=== PATIENT | female | born 1975 | race Hispanic/Latino ===

== ENCOUNTER 2019-10-18 05:56 | Emergency (ER) | payer SELFPAY ==
[~2019-10-18] VITALS: Ht 157.5 cm; Wt 86.2 kg
--- NOTE | 2019-10-18 06:20 | NUR ---
straight cath urine output mesno=[id number] - notified
[2019-10-18 07:00] LABS: BASOPHILS % 0.4 % (0.0-1.0); EOSINOPHILS # (AUTO) 0.2 (0.0-0.4); EOSINOPHILS % 2.1 % (0.0-6.0); HEMATOCRIT 40.1 % (34.2-44.1); HEMOGLOBIN 13.5 g/dL (12.0-16.0); LYMPHOCYTES # (AUTO) 1.5 (1.0-3.2); MEAN CORPUSCULAR HEMOGLOBIN 31.4 pg (28-32); MEAN CORPUSCULAR HGB CONC 33.7 g/dL (31-35); MEAN CORPUSCULAR VOLUME 93.3 fL (81-99); MONOCYTES # (AUTO) 0.5 (0.2-0.8); MONOCYTES % 5.4 % (4.4-11.3); NEUTROPHILS # (AUTO) 6.9 (2.1-6.9); NEUTROPHILS % 75.7 % (38.7-80.0); PLATELET COUNT 310 x10e3/uL (140-360); RED CELL DISTRIBUTION WIDTH 12.8 % (11.7-14.4)
--- NOTE | 2019-10-18 07:00 | NUR ---
post straight cath bladder scan= 114ml- notified
[2019-10-18 07:07] LABS: BILIRUBIN,URINE NEGATIVE (NEGATIVE); CLARITY,URINE CLEAR (CLEAR); COLOR,URINE YELLOW (YELLOW); KETONES,URINE NEGATIVE (NEGATIVE); LEUKOCYTE ESTERASE ,URINE NEGATIVE (NEGATIVE); NITRITE,URINE NEGATIVE (NEGATIVE); PROTEIN,URINE DIPSTICK NEGATIVE (NEGATIVE); URINE UROBILINOGEN 0.2 mg/dL (0.2 - 1)
--- NOTE | 2019-10-18 07:07 | Emergency Department Note ---
History of Present Illnes History of Present Illness Chief Complaint: General Medicine Complaints History of Present Illness This is a 43 year old female Chief Complaint Comment patient around 230 am began having urinary sensation, yet unable to urinate. patient states this issue has happened before and resolved on its own; states has bm was today around 520am, bladder scan showed >910ml urine volume. Historian: Patient Arrival Mode: Car Onset (how long ago): day(s) (2) Location: Bladder Quality: Fullness Radiation: Reports non-radiation Severity: moderate Onset quality: gradual Duration (how long): day(s) (2) Timing of current episode: constant Progression: worsening Chronicity: recurrent Context: Denies recent illness Relieving factors: none Exacerbating factors: none Associated symptoms: Reports denies other symptoms Treatments prior to arrival: none Past Medical/Family History Physician Review I have reviewed the patient's past medical and family history. Any updates have been documented here. Past Medical History Recent Fever: No Clinical Suspicion of Infectio: No New/Unexplained Change in Ment: No Other Medical History: hashymotos disease osteoarthritis Social History Physically hurt or threatened: No Review of Systems Review of Systems Constitutional: Reports no symptoms EENTM: Reports no symptoms Cardiovascular: Reports no symptoms Respiratory: Reports no symptoms Gastrointestinal: Reports no symptoms Genitourinary: Reports as per HPI, Reports other (Inability to urinate) Musculoskeletal: Reports no symptoms Integumentary: Reports no symptoms Neurological: Reports no symptoms Psychological: Reports no symptoms Endocrine: Reports no symptoms Hematological/Lymphatic: Reports no symptoms Physical Exam Related Data Allergies: Coded Allergies: aspirin (Verified Allergy, Severe, anaphylaxis, 10/18/19) ibuprofen (Verified Allergy, Severe, anaphylaxis, 10/18/19) Triage Vital Signs Vital Signs Date Time Temp Pulse Resp B/P (MAP) Pulse Ox O2 Delivery O2 Flow Rate FiO2 10/18/19 06:15 97.9 84 22 127/76 100 Vital signs reviewed: Yes Physical Exam CONSTITUTIONAL Constitutional: Present well-developed, Present well-nourished HENT HENT: Present normocephalic, Present atraumatic, Present oropharynx clear/moist, Present nose normal HENT L/R: Present left ext ear normal, Present right ext ear normal EYES Eyes: Reports PERRL, Reports conjunctivae normal NECK Neck: Present ROM normal PULMONARY Pulmonary: Present effort normal, Present breath sounds normal CARDIOVASCULAR Cardiovascular: Present regular rhythm, Present heart sounds normal, Present capillary refill normal, Present normal rate GASTROINTESTINAL Abdominal: Present soft, Present nontender, Present bowel sounds normal GENITOURINARY Genitourinary: Present exam deferred, Present other (Distended bladder) SKIN Skin: Present warm, Present dry MUSCULOSKELETAL Musculoskeletal: Present ROM normal NEUROLOGICAL Neurological: Present alert, Present oriented x 3, Present no gross motor or sensory deficits PSYCHOLOGICAL Psychological: Present mood/affect normal, Present judgement normal Results Laboratory Laboratory Laboratory Tests Test 10/18/19 06:55 Assessment & Plan Medical Decision Making MDM 43-year-old female presents for urinary retention. She has had this in the past which spontaneously resolved. Symptoms ongoing for the last couple days. Exam shows a distended bladder and she was catheterized with 900 mL out. Labs/urine show moderate bacteria on Cath specimen but no other signs for UTI. 2/2 difficulty urinating will rx keflex and send for UC. She will f/u w/ Urology for this recurrent issue. Patient is now able to void on her own. Patient is appropriate for discharge. Reassessment Reassessment time: 07:06 Reassessment Feels much better after cath Assessment & Plan Final Impression: (1) Urinary retention Depart Disposition: HOME, SELF-CARE Last Vital Signs Date Time Temp Pulse Resp B/P (MAP) Pulse Ox O2 Delivery O2 Flow Rate FiO2 10/18/19 06:15 97.9 84 22 127/76 100 Home Meds Active Scripts Cephalexin Monohydrate (KEFLEX) 500 Mg Capsule, 500 MG PO BID for 7 Days, #14 TAB 0 Refills Prov:EDDIE PRESCOTT MD 10/18/19 EDDIE PRESCOTT MD Oct 18, 2019 07:07
--- NOTE | 2019-10-18 07:08 | NUR ---
walking rounds with trudy luo
--- OUTSIDE RECORDS SUMMARY | 2019-10-18 07:22 | XMS REPORT | Continuity of Care Document ---
Author Author [facility] Organization [facility] Address [address] [place] [address] Phone Unavailable Care Team Providers Care [place] Hold Name Role Phone Rita Fleming Unavailable Payers Payer Name Policy Type Policy Number Effective Date Expiration Date S ource Problems This patient has no known problems. Allergies, Adverse Reactions, Alerts Allergy Name Allergy Type Status Severity Reaction(s) Onset Date Inacti ve Date Treating Clinician Comments Source aspirin DA Active U 2015-04-11 00:00:00 [facility] ibuprofen DA Active U 2015-04-11 00:00:00 [facility] Medications This patient has no known medications. Procedures This patient has no known procedures. Encounters Start Date/Time End Date/Time Encounter Type Admission Type Attendi [facility] Care Department Encounter ID Source 2019-01-24 11:09:00 2019-01-24 11:09:00 Outpatient Flora Fleming [id number] [facility] 2017-08-30 09:59:00 2017-08-30 09:59:00 [facility] [id number]:58:00 2017-08-09 15:58:00 Outpatient Flora FlemingGYRosibel [id number] [facility] 2017-03-03 11:43:00 2017-03-03 11:43:00 Outpatient Flora FlemingOBGYN [id number] [facility] Results This patient has no known results.
[2019-10-18 07:24] LABS: BACTERIA,URINE MODERATE /HPF; EPITHELIAL CELLS,URINE RARE /LPF; RBC,URINE 0-5 /HPF (0-5)
[2019-10-18 07:45] LABS: ALANINE AMINOTRANSFERASE 17 IU/L (0-55); ALBUMIN 4.4 g/dL (3.5-5.0); ALBUMIN/GLOBULIN RATIO 1.5 (0.8-2.0); ALKALINE PHOSPHATASE 74 IU/L (40-150); ANION GAP 14.5 mmol/L (8-16); BLOOD UREA NITROGEN 11 mg/dL (7-26); BUN/CREATININE RATIO 14 (6-25); CALCIUM 9.5 mg/dL (8.4-10.2); CARBON DIOXIDE 23 mmol/L (22-29); CHLORIDE 104 mmol/L (98-107); CREATININE, SERUM 0.78 mg/dL (0.57-1.11); EST GLOMERULAR FILTRATION RATE > 60 ML/MIN (60-); GLUCOSE 116 mg/dL (74-118); POTASSIUM 3.5 mmol/L (3.5-5.1); SODIUM 138 mmol/L (136-145)
[2019-10-18] MEDS ORDERED: KEFLEX500 MG PO (08:03)
[2019-10-18 08:27] VITALS: BP 112/72
== END 2019-10-18 08:49 | disposition home or self-care (01) ==
LOC: ER 06:23
DX: R33.9 Retention of urine, unspecified (principal); E06.3 Autoimmune thyroiditis
CPT/HCPCS: 36415; 80053; 81001; 85025; 87086; 99284

== ENCOUNTER 2019-11-15 03:08 | Emergency (ER) | payer SELFPAY ==
[~2019-11-15] VITALS: Ht 157.5 cm; Wt 86.2 kg
[~2019-11-15 03:08] MED LIST: KEFLEX500 MG PO
--- OUTSIDE RECORDS SUMMARY | 2019-11-15 03:18 | XMS REPORT | Continuity of Care Document ---
Author Author [facility] Organization [facility] Address [address] [place] [address] Phone Unavailable Care Team Providers Care Facilities Maintenance Manager Name Role Phone Rita Fleming Unavailable Payers Payer Name Policy Type Policy Number Effective Date Expiration Date S ource Problems This patient has no known problems. Allergies, Adverse Reactions, Alerts Allergy Name Allergy Type Status Severity Reaction(s) Onset Date Inacti ve Date Treating Clinician Comments Source aspirin DA Active U 2015-04-11 00:00:00 [facility] ibuprofen DA Active U 2015-04-11 00:00:00 [facility] Medications This patient has no known medications. Procedures This patient has no known procedures. Encounters Start Date/Time End Date/Time Encounter Type Admission Type Attendi [facility] Care Department Encounter ID Source 2019-01-24 11:09:00 2019-01-24 11:09:00 Outpatient Flora Fleming [id number] [facility] 2017-08-30 09:59:00 2017-08-30 09:59:00 [facility] [id number] [facility] 15:58:00 2017-08-09 15:58:00 Outpatient Flora FlemingGYRosibel [id number] [facility] 2017-03-03 11:43:00 2017-03-03 11:43:00 Outpatient Flora FlemingOBGYN [id number] [facility] Results This patient has no known results.
--- NOTE | 2019-11-15 04:05 | NUR ---
600 cc clear, yellow urine noted to drainage bag
[2019-11-15 04:09] LABS: CLARITY,URINE CLEAR (CLEAR); COLOR,URINE YELLOW (YELLOW)
[2019-11-15 04:10] LABS: BILIRUBIN,URINE NEGATIVE (NEGATIVE); KETONES,URINE NEGATIVE (NEGATIVE); LEUKOCYTE ESTERASE ,URINE NEGATIVE (NEGATIVE); NITRITE,URINE NEGATIVE (NEGATIVE); PROTEIN,URINE DIPSTICK NEGATIVE (NEGATIVE); URINE UROBILINOGEN 0.2 mg/dL (0.2 - 1)
[2019-11-15 04:15] LABS: BACTERIA,URINE FEW /HPF; EPITHELIAL CELLS,URINE RARE /LPF; RBC,URINE 0-5 /HPF (0-5); WBC,URINE (MAN) 0-5 /HPF (0-5)
--- NOTE | 2019-11-15 04:16 | Emergency Department Note ---
History of Present Illnes History of Present Illness Chief Complaint: Genitourinary History of Present Illness This is a 43 year old female PRESENTS TO ED WITH URINARY RETENTION X3 HRS AND CONSTIPATION; HOWEVER, PT REPORTS CHRONIC CONSTIPATION; PT HAS HAD URINARY RETENTION IN THE PAST INCLUDING HER LAST VISIT TO THIS ER, HAS NOT FOLLOWED UP WITH UROLOGY YET.. Historian: Patient Arrival Mode: [employer] Assistant Required: No Onset (how long ago): hour(s) (3) Location: SUPRA PUBIC Quality: DISCOMFORT Radiation: Reports non-radiation Severity: moderate Onset quality: gradual Duration (how long): hour(s) (3) Timing of current episode: constant Progression: worsening Chronicity: recurrent Context: Denies recent illness, Denies recent surgery, Denies trauma/injury Relieving factors: none Exacerbating factors: none Associated symptoms: Reports other (CONSTIPATION) Past Medical/Family History Physician Review I have reviewed the patient's past medical and family history. Any updates have been documented here. Past Medical History Recent Fever: No Clinical Suspicion of Infectio: No New/Unexplained Change in Ment: No Other Medical History: hashymotos disease osteoarthritis Social History Smoking Cessation: Never Smoker Alcohol Use: None Any Illegal Drug Use: No Family History Family history of heart diseas: No Review of Systems Review of Systems Constitutional: Reports no symptoms EENTM: Reports no symptoms Cardiovascular: Reports no symptoms Respiratory: Reports no symptoms Gastrointestinal: Reports as per HPI Genitourinary: Reports as per HPI Musculoskeletal: Reports no symptoms Integumentary: Reports no symptoms Neurological: Reports no symptoms Psychological: Reports no symptoms Endocrine: Reports no symptoms Hematological/Lymphatic: Reports no symptoms Physical Exam Related Data Allergies: Coded Allergies: aspirin (Verified Allergy, Severe, anaphylaxis, 10/18/19) ibuprofen (Verified Allergy, Severe, anaphylaxis, 10/18/19) Triage Vital Signs Vital Signs Date Time Temp Pulse Resp B/P (MAP) Pulse Ox O2 Delivery O2 Flow Rate FiO2 11/15/19 04:02 98.7 84 17 154/92 98 Room Air Vital signs reviewed: Yes Physical Exam CONSTITUTIONAL Constitutional: Present well-developed, Present well-nourished; Absent distressed HENT HENT: Present normocephalic, Present atraumatic, Present oropharynx clear/moist, Present nose normal HENT L/R: Present left ext ear normal, Present right ext ear normal EYES Eyes: Reports PERRL, Reports conjunctivae normal NECK Neck: Present ROM normal PULMONARY Pulmonary: Present effort normal, Present breath sounds normal CARDIOVASCULAR Cardiovascular: Present regular rhythm, Present heart sounds normal, Present capillary refill normal, Present normal rate GASTROINTESTINAL Abdominal: Present soft, Present bowel sounds normal, Present tender (SUPARPUBIC), Present other (BLADDER DISTENSION PRESENT ON EXAM) GENITOURINARY Genitourinary: Present exam deferred SKIN Skin: Present warm, Present dry MUSCULOSKELETAL Musculoskeletal: Present ROM normal NEUROLOGICAL Neurological: Present alert, Present oriented x 3, Present no gross motor or sensory deficits PSYCHOLOGICAL Psychological: Present mood/affect normal, Present judgement normal Results Laboratory Laboratory Laboratory Tests Test 11/15/19 03:50 Urine Color Yellow (YELLOW) Urine Clarity Clear (CLEAR) Urine pH 5.5 (5 - 7) Urine Specific [place] 1.015 (1.010-1.025) Urine Protein Negative (NEGATIVE) Urine Glucose (UA) Negative (NEGATIVE) Urine Ketones Negative (NEGATIVE) Urine Blood Trace (NEGATIVE) Urine Nitrite Negative (NEGATIVE) Urine Bilirubin Negative (NEGATIVE) Urine Urobilinogen 0.2 mg/dL (0.2 - 1) Urine Leukocyte Esterase Negative (NEGATIVE) Urine Test Negative (NEGATIVE) Lab results reviewed: Yes Imaging Imaging results reviewed: Yes Impressions Procedure: [id number] DX/ABDOMEN-1VIEW (KUB) Exam Date: Exam Time: REPORT STATUS: Signed EXAM: Abdomen Radiograph 1 View(s) INDICATION: ^EVAL FOR CONSTIPATION ^Y COMPARISON: None FINDINGS: Gas and stool are seen throughout the colon to the level of the rectum. Moderate stool burden. No dilated small bowel loops. Multiple pelvic phleboliths. 6 mm calcification projecting over the right iliac bone may represent a bone island or appendicolith. IMPRESSION: Nonobstructive bowel gas pattern. Moderate stool burden. Signed by: Jared Tavarez MD on 11/15/2019 5:18 AM Dictated By: JARED TAVAREZ MD 7 Transcribed By: JUAN PABLO on 11/15/19517 COPY TO: ANDERS TROTTER MD~ Assessment & Plan Medical Decision Making MDM PT WITH URINARY RETENTION AND CONSTIPATION STRAIGHT CATH ORDERED 600 CC URINE OUTPUT IMMEDIATELY KUB,UA ORDERED TO EVAL FOR UTI, FECAL RETENTION, Reassessment Reassessment time: 05:31 Reassessment pt feels better, has urinated twice since straight cath was done and also reports having 2 bowel movements as well Assessment & Plan Final Impression: (1) Constipation (2) Urinary retention Depart Disposition: HOME, SELF-CARE Last Vital Signs Date Time Temp Pulse Resp B/P (MAP) Pulse Ox O2 Delivery O2 Flow Rate FiO2 11/15/19 04:02 98.7 84 17 154/92 98 Room Air Home Meds Active Scripts Cephalexin Monohydrate (KEFLEX) 500 Mg Capsule, 500 MG PO BID for 7 Days, #14 TAB 0 Refills Prov:EDDIE PRESCOTT MD 10/18/19 ANDERS TROTTER MD Nov 15, 2019 04:16
--- NOTE | 2019-11-15 05:22 | Diagnostic Imaging Report ---
EXAM: Abdomen Radiograph 1 View(s) INDICATION: ^EVAL FOR CONSTIPATION ^Y COMPARISON: None FINDINGS: Gas and stool are seen throughout the colon to the level of the rectum. Moderate stool burden. No dilated small bowel loops. Multiple pelvic phleboliths. 6 mm calcification projecting over the right iliac bone may represent a bone island or appendicolith. IMPRESSION: Nonobstructive bowel gas pattern. Moderate stool burden. Signed by: Mina Zapata MD on 11/15/2019 5:18 AM
[2019-11-15 05:30] VITALS: BP 132/79
== END 2019-11-15 05:45 | disposition home or self-care (01) ==
LOC: ER 03:12
DX: K59.00 Constipation, unspecified (principal); R33.9 Retention of urine, unspecified; E06.3 Autoimmune thyroiditis
CPT/HCPCS: 74018; 81001; 81025; 87086; 99283